=== PATIENT | male | born 1990 | race Caucasian/White ===

== ENCOUNTER 2023-01-01 20:31 | Emergency (ER) | payer OTHER ==
[~2023-01-01] VITALS: Ht 193 cm; Wt 74.8 kg
[2023-01-01] MEDS ORDERED: NAPROSYN500 MG PO (22:16)
== END 2023-01-02 01:30 | disposition home or self-care (01) ==
LOC: ED 20:31
DX: S52.201A Unspecified fracture of shaft of right ulna, initial encounter for closed fracture (principal); F19.10 Other psychoactive substance abuse, uncomplicated; X58.XXXA Exposure to other specified factors, initial encounter; F43.10 Post-traumatic stress disorder, unspecified
CPT/HCPCS: 36415; 70450; 73110; 80053; 81001; 85025; 96374; 99284-25; J2310

== ENCOUNTER 2023-08-28 14:52 | Emergency (ER) | payer OTHER ==
[~2023-08-28 14:52] MED LIST: NAPROSYN500 MG PO
[2023-08-28 17:30] VITALS: BP 118/75
[2023-08-29] MEDS ORDERED: ONDANSETRON ODT8 MG PO (16:38)
[2023-08-29] MEDS ORDERED: PROZAC10 MG PO (17:01)
[2023-08-29] MEDS ORDERED: BUSPIRONE HCL30 MG PO (17:02)
[2023-08-29] MEDS ORDERED: BENADRYL ALLERG50 MG PO (17:03)
== END 2023-08-28 17:31 | disposition home or self-care (01) ==
LOC: ED 14:52
DX: S02.2XXA Fracture of nasal bones, initial encounter for closed fracture (principal); Y04.0XXA Assault by unarmed brawl or fight, initial encounter; F43.10 Post-traumatic stress disorder, unspecified
CPT/HCPCS: 70486; 99284-25

== ENCOUNTER 2023-08-29 14:48 | Emergency (ER) | payer OTHER ==
[~2023-08-29] VITALS: Ht 193 cm; Wt 102.5 kg
--- OUTSIDE RECORDS SUMMARY | 2023-08-29 14:56 | XMS ---
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 Fabian has no Care Guidelines for this patient. [facility] V[facility] (12 MO.) [facility] T[facility] NOTE: Visits indicate total known visits. ED/[facility] VISIT TRACKING (12 MO.) [facility] COMPLAINT: - HEAD INJURY 08/28/2023 14:53 [facility] [place] TYPE: Emergency COMPLAINT: - EYE INJURY 01/01/2023 20:32 [facility] [place] TYPE: Emergency COMPLAINT: - SUBSTANCE ABUSE DIAGNOSES: - Exposure to other specified factors, initial encounter - Other psychoactive substance abuse, uncomplicated - Post-traumatic stress disorder, unspecified - Unspecified fracture of shaft of right ulna, initial encounter for closed fracture INPATIENT VISIT TRACKING (12 MO.) No inpatient visits to display in this time frame [email or web address]
[2023-08-29 15:55] LABS: BASOPHILS 0.8 % (0-2); EOSINOPHILS 2.2 % (0-6); HEMATOCRIT 49.3 % (35.0-50.0); HEMOGLOBIN 16.6 g/dL (12.0-18.0); LYMPHOCYTES 34.5 % (24-44); MCH 30.2 (27-36); MCHC 33.6 g/dl (30-36); MONOCYTES 7.5 % (0-12); PLATELET COUNT 178 K/uL (140-440); RBC 5.48 M/ul (4.3-5.7); RDW 13.3 (10.5-15.0)
[2023-08-29 16:05] LABS: ALBUMIN 4.4 g/dL (3.4-5.0); ALBUMIN/GLOBULIN RATIO 1.29 (1.1-2.4); ANION GAP 11.5 (7-21); BILIRUBIN, TOTAL 0.6 ng/dL (0.2-1.0); BUN/CREATININE RATIO 17.17 (6.0-28.6); CALCIUM 9.3 mg/dL (8.5-10.1); CREATININE, SERUM 0.99 mg/dL (0.70-1.30); POTASSIUM 4.5 mmol/L (3.5-5.1); PROTEIN, TOTAL 7.8 g/dL (6.4-8.2)
[2023-08-29] MEDS ORDERED: ONDANSETRON ODT8 MG PO (16:38)
[2023-08-29] MEDS ORDERED: PROZAC10 MG PO (17:01)
[2023-08-29] MEDS ORDERED: BUSPIRONE HCL30 MG PO (17:02)
[2023-08-29 17:03] VITALS: BP 115/82
[2023-08-29] MEDS ORDERED: BENADRYL ALLERG50 MG PO (17:03)
== END 2023-08-29 17:05 | disposition home or self-care (01) ==
LOC: ED 14:48
PROVIDERS: Emergency Medicine
DX: S06.0XAA Concussion with loss of consciousness status unknown, initial encounter (principal); X58.XXXA Exposure to other specified factors, initial encounter; Y92.149 Unspecified place in prison as the place of occurrence of the external cause; Z91.030 Bee allergy status
CPT/HCPCS: 36415; 70450; 80053; 85025; 96374; 99284-25; J2405; J7030

== ENCOUNTER 2023-09-13 08:37 | Emergency (ER) | payer OTHER ==
[~2023-09-13] VITALS: Ht 193 cm; Wt 102.1 kg
[~2023-09-13 08:37] MED LIST changes: +BENADRYL ALLERG50 MG PO; +BUSPIRONE HCL30 MG PO; +ONDANSETRON ODT8 MG PO; +PROZAC10 MG PO
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
[2023-09-13 09:23] LABS: BASOPHILS 0.9 % (0-2); HEMATOCRIT 50.5 % (35.0-50.0); LYMPHOCYTES 39.3 % (24-44); MCH 30.3 (27-36); MCHC 33.6 g/dl (30-36); MCV 90.2 fl (81-99); MONOCYTES 8.9 % (0-12); NEUTROPHILS 45.9 % (39-80); PLATELET COUNT 162 K/uL (140-440); RDW 13.6 (10.5-15.0)
[2023-09-13 09:37] LABS: ALBUMIN 4.3 g/dL (3.4-5.0); ALBUMIN/GLOBULIN RATIO 1.39 (1.1-2.4); ANION GAP 9.1 (7-21); BILIRUBIN, TOTAL 0.6 ng/dL (0.2-1.0); BUN/CREATININE RATIO 15.96 (6.0-28.6); CALCIUM 9.1 mg/dL (8.5-10.1); CREATININE, SERUM 1.19 mg/dL (0.70-1.30); POTASSIUM 4.1 mmol/L (3.5-5.1); PROTEIN, TOTAL 7.4 g/dL (6.4-8.2)
[2023-09-13 10:29] VITALS: BP 125/68
== END 2023-09-13 10:31 | disposition home or self-care (01) ==
LOC: ED 08:37
PROVIDERS: Emergency Medicine
DX: F07.81 Postconcussional syndrome (principal); Z91.030 Bee allergy status; Z79.899 Other long term (current) drug therapy
CPT/HCPCS: 36415; 70450; 80053; 85025; 99284-25